=== PATIENT | female | born 1990 | race Caucasian/White ===

== ENCOUNTER 2022-03-20 10:49 | Inpatient (IN) | payer MEDICAID ==
[~2022-03-20] VITALS: Ht 157.5 cm; Wt 68.5 kg
[2022-03-20 10:50] VITALS: BP_SYST 152
--- NOTE | 2022-03-20 10:50 | NUR ---
Placed in room 1 . Placed on traffic monitor specialist, blood pressure machine and pulse oximeter. To gown for exam. Side rails up. Report given to MIKE DOMINGO.
--- NOTE | 2022-03-20 10:52 | NUR ---
ER DR. WOLF EXAMINING PT
[2022-03-20 11:51] LABS: BASOPHILS # (AUTO) 0.1 K/uL (0.0-0.2); BASOPHILS % (AUTO) 0.9 % (0.0-2.0); EOSINOPHILS # (AUTO) 0.6 K/uL (0.0-0.4); HEMOGLOBIN 7.9 g/dL (12.0-16.0); LYMPHOCYTES # (AUTO) 2.3 K/uL (1.0-5.5); LYMPHOCYTES % (AUTO) 16.3 % (20.5-51.5); MEAN CORPUSCULAR HEMOGLOBIN 29 pg (27-31); MEAN CORPUSCULAR HGB CONC 34 % (32-36); MEAN CORPUSCULAR VOLUME 84 fL (79.0-98.0); MONOCYTES # (AUTO) 0.9 K/uL (0.0-1.0); MONOCYTES % (AUTO) 6.4 % (1.7-9.3); NEUTROPHILS # (AUTO) 10.4 K/uL (1.8-7.7); NEUTROPHILS % (AUTO) 72.4 % (40.0-70.0); PLATELET COUNT (AUTO) 491 K/uL (130-430); RED BLOOD CELL COUNT(AUTO) 2.75 MIL/uL (4.2-6.2); RED CELL DISTRIBUTION WIDTH 16.3 % (9.0-15.0); WHITE BLOOD COUNT (AUTO) 14.4 K/uL (4.8-10.8)
[2022-03-20] MEDS ORDERED: LIDOCAINE 1%, 20 ML MDV 20 ML ONE (12:30)
[2022-03-20 13:30] LABS: ANION GAP 9 (5-15); CALCIUM 7.8 mg/dL (8.4-11.0); CHLORIDE 108 mmol/L (98-107); CREATININE 4.53 mg/dL (0.55-1.30); GLUCOSE 144 mg/dL (70-99); POTASSIUM 5.2 mmol/L (3.5-5.1); SODIUM SERUM 139 mmol/L (136-145); UREA NITROGEN, BLOOD 63 mg/dL (8-21)
[2022-03-20 13:32] LABS: GFR AFRICAN AMERICAN 15 mL/min (>90)
[2022-03-20 13:39] LABS: ALANINE AMINOTRANSFERASE 39 U/L (12-78); ASPARTATE AMINOTRANSFERASE 27 U/L (10-37); TOTAL BILIRUBIN 0.1 mg/dL (0.0-1.0)
--- NOTE | 2022-03-20 14:04 | NUR ---
COVID SWAB SENT TO LAB 14:02.
[2022-03-20] MEDS ORDERED: SODIUM ZIRCONIUM CYCLOSILICATE 10 GM POWD.PACK PO ONE (14:45)
[2022-03-20] MEDS ORDERED: FUROSEMIDE 40 MG/4 ML VIAL IVP ONE (14:45)
[2022-03-20] MEDS ORDERED: ONDANSETRON HCL 4 MG/2 ML VIAL IVP ONE (14:45)
[2022-03-20] MEDS ORDERED: ONDANSETRON HCL 4 MG/2 ML VIAL ONE (14:49)
--- NOTE | 2022-03-20 14:51 | NUR ---
Admit bed requested Patient will be admitted to care of . Admitted to TELE unit. Diagnosis RENAL FAILURE Inpatient (Yes or No) YES Observation (Yes or No) NO Orientation concerns or request close to nursing station (Yes or No) NO Covid Status NEGATIVE On vent or bipap NO Isolation requirements NO Needs a sitter NO From Home (Yes or if No enter name of facility) HOME Requires Dialysis (Yes or No) YES Med Rec Completed (Yes of No) YES
[2022-03-20] MEDS ORDERED: NALOXONE HCL 0.4 MG/ML AMP (NARCAN) IVP PRN (18:15)
[2022-03-20] MEDS ORDERED: HYDROcodone/ACETAMIN 5-325 MG TAB (NORCO/ VICODIN) PO PRN (18:15)
[2022-03-20 18:25] VITALS: BP_SYST 168
--- NOTE | 2022-03-20 18:45 | NUR ---
Pt. received at 1800 via gurney accompanied by er nurse. A/O x4. VS 200/123, and 168/117. Dr Rivera at bedside, assessment done. Pt. c/o pain 03/29. [place] ordered. Given. Central line left femoral, site clear. insulin right lower abdomen, BS 134 per pump. Tele placed Sinus tacky. Pt. voicing needs without difficulty. Edema +3 bilateral Report to casework specialist MIKE Calvillo.
[2022-03-20 20:00] VITALS: BP_SYST 163
[2022-03-20] MEDS ORDERED: ONDANSETRON HCL 4 MG/2 ML VIAL IVP PRN (20:00)
[2022-03-20] MEDS ORDERED: DEXTROSE 50% JECT 50 ML DISP.SYRIN IVP PRN (20:15)
[2022-03-20] MEDS ORDERED: GLUCOSE (DEXTROSE) ORAL GEL -Adults PO PRN (20:15)
[2022-03-20] MEDS ORDERED: D5W 1,000 ML IV PRN (20:15)
[2022-03-20] MEDS ORDERED: LABETALOL HCL 20 MG/4 ML CARTRIDGE IVP PRN ×2 (20:15→20:21)
[2022-03-20] MEDS: CARVEDILOL 12.5 MG TABLET (COREG) PO SCH ×2 (21:00→21:20)
[2022-03-20] MEDS ORDERED: DIPHENHYDRAMINE HCL 12.5 MG/5 ML UDC PO ONE (23:30)
[2022-03-21] VITALS: BP_SYST 146
[2022-03-21 08:00] VITALS: BP_SYST 144
[2022-03-21] MEDS ORDERED: amLODIPine BESYLATE 5 MG TABLET PO SCH (09:00)
[2022-03-21] MEDS ORDERED: D5/0.45 NS 1,000 ML IV SCH (09:15)
[2022-03-21] MEDS: CARVEDILOL 12.5 MG TABLET (COREG) PO SCH ×2 (09:19→21:09)
[2022-03-21] MEDS ORDERED: LABETALOL 100 MG/ 20ML VIAL IVP PRN (11:30)
[2022-03-21 12:00] VITALS: BP_SYST 144
[2022-03-21] MEDS ORDERED: POLYETHYLENE GLYCOL 3350, 17 GM/ POWD.PACK PO PRN (12:45)
[2022-03-21] MEDS ORDERED: DOCUSATE SODIUM 100 MG CAPSULE PO PRN (12:45)
[2022-03-21 14:03] LABS: BASOPHILS # (AUTO) 0.1 K/uL (0.0-0.2); BASOPHILS % (AUTO) 0.9 % (0.0-2.0); EOSINOPHILS # (AUTO) 0.4 K/uL (0.0-0.4); EOSINOPHILS % (AUTO) 4.2 % (0.0-4.0); LYMPHOCYTES # (AUTO) 2.5 K/uL (1.0-5.5); LYMPHOCYTES % (AUTO) 26.1 % (20.5-51.5); MEAN CORPUSCULAR HEMOGLOBIN 28 pg (27-31); MEAN CORPUSCULAR HGB CONC 34 % (32-36); MEAN CORPUSCULAR VOLUME 84 fL (79.0-98.0); MONOCYTES # (AUTO) 0.6 K/uL (0.0-1.0); MONOCYTES % (AUTO) 6.4 % (1.7-9.3); NEUTROPHILS # (AUTO) 5.9 K/uL (1.8-7.7); NEUTROPHILS % (AUTO) 62.4 % (40.0-70.0); PLATELET COUNT (AUTO) 371 K/uL (130-430); RED BLOOD CELL COUNT(AUTO) 2.28 MIL/uL (4.2-6.2); RED CELL DISTRIBUTION WIDTH 15.7 % (9.0-15.0); WHITE BLOOD COUNT (AUTO) 9.4 K/uL (4.8-10.8)
[2022-03-21 14:06] LABS: HEMOGLOBIN 6.5 g/dL (12.0-16.0)
[2022-03-21 14:07] LABS: HEMATOCRIT 19.1 % (36-48)
[2022-03-21 14:17] LABS: CALCIUM 7.7 mg/dL (8.4-11.0); CREATININE 4.41 mg/dL (0.55-1.30); PHOSPHORUS 4.8 mg/dL (2.7-4.5); POTASSIUM 4.3 mmol/L (3.5-5.1)
[2022-03-21 14:27] LABS: TOTAL IRON BIND. CAPACITY 195 ug/dL (250-450)
--- NOTE | 2022-03-21 14:28 | NUR ---
DISCHARGE PLANNING Spoke with pt at bedside, entered room. Plan for new HD, [facility]. Pt agreeable with [facility] with preference for morning HD if possible. Per pt has never had dialysis in past. Father will be driving her to dialysis center.
[2022-03-21] MEDS ORDERED: levoFLOXacin 750 MG TABLET PO ONE (14:30)
[2022-03-21] MEDS ORDERED: FUROSEMIDE 40 MG/4 ML VIAL IVP ONE (15:00)
[2022-03-21] MEDS ORDERED: EPOETIN ALFA-EPBX 4,000 UNITS/ML VIAL SUBCUT ONE (15:30)
--- NOTE | 2022-03-21 15:58 | NUR ---
Dr Thomson saw patient at the bedside today. He has reviewed available labs. He states that he will wait for blood culture results to return before placing HD access. Blood cultures were drawn this afternoon and delivered to the lab.
[2022-03-21 16:00] VITALS: BP_SYST 153
--- NOTE | 2022-03-21 16:34 | NUR ---
BT INITIATION: Consent signed per pt agreeing to administration of blood. Blood has been type and crossmatched. Blood sent from blood bank. Information on unit of blood checked against patient wristband at bedside by two nurses. All information matches. Patient or responsible republican informed of potential complications associated with blood transfusion. Informed of possible transfusion reaction symptoms. Aware of need to notify nurse at once of itching, shortness of breath, flushing, feeling of impending doom, or other symptoms not previously present. Vital signs taken within 5 minutes prior to initiation of transfusion. RN will remain with patient for first 15 minutes of transfusion at which time vital signs will be re-assessed.
--- NOTE | 2022-03-21 16:39 | NUR ---
CONSULT CARDIOLOGY CARDIAC CLEARANCE FOR SURGERY DR DONG [phone] S/W [facility] OFFICE
--- NOTE | 2022-03-21 16:49 | NUR ---
blood transfusion obtained vs, increased transfusion rate to 125ml/hr. Patient tolerating well, no signs of adverse reactions.
--- NOTE | 2022-03-21 18:00 | NUR ---
Miss Tilley has been assessed as indicated. she has continued ti deny pain. She has pool NPO until dinner time. She was awating information related to HD access placement. This is to be placed tomorrow.She will be nPO after midnight. She had IVF when NPO and this has been well tolerated. Her blood sugars have been measured by a percutaneus device that also provides continous insulin. She has been transfused with 1 unit PRBC. this has been well tolerated. she has also been provided with a dose of PROCRIT medication. She has been both pleasant and cooperative. And is resting quietly at this time
[2022-03-21] MEDS ORDERED: PANTOPRAZOLE SODIUM 40 MG/VIAL (PROTONIX) IVP ONE (19:00)
[2022-03-21 19:05] VITALS: BP_SYST 148; BP_SYST 157
--- NOTE | 2022-03-21 19:15 | NUR ---
Handoff has been given to Trinh
[2022-03-21 20:38] VITALS: BP_SYST 165
[2022-03-22 00:36] VITALS: BP_SYST 155
[2022-03-22 00:55] LABS: HEMATOCRIT 24.3 % (36-48); HEMOGLOBIN 8.3 g/dL (12.0-16.0); MEAN CORPUSCULAR HEMOGLOBIN 30 pg (27-31); MEAN CORPUSCULAR HGB CONC 34 % (32-36); MEAN CORPUSCULAR VOLUME 86 fL (79.0-98.0); RED BLOOD CELL COUNT(AUTO) 2.82 MIL/uL (4.2-6.2)
[2022-03-22 00:56] LABS: BASOPHILS % (AUTO) 0.9 % (0.0-2.0); EOSINOPHILS # (AUTO) 0.4 K/uL (0.0-0.4); LYMPHOCYTES # (AUTO) 1.7 K/uL (1.0-5.5); LYMPHOCYTES % (AUTO) 14.5 % (20.5-51.5); MONOCYTES # (AUTO) 0.6 K/uL (0.0-1.0); MONOCYTES % (AUTO) 5.3 % (1.7-9.3); NEUTROPHILS # (AUTO) 9.1 K/uL (1.8-7.7); NEUTROPHILS % (AUTO) 76.3 % (40.0-70.0); PLATELET COUNT (AUTO) 383 K/uL (130-430); RED CELL DISTRIBUTION WIDTH 15.7 % (9.0-15.0)
[2022-03-22 00:57] LABS: BASOPHILS # (AUTO) 0.1 K/uL (0.0-0.2)
--- NOTE | 2022-03-22 04:23 | NUR ---
CONSULTATION PAGED/CALLED Reason for Consultation: ABD PAIN. ACUTE DROP IN HGB Person Who was Notified: ROBBY Consulting Physician: DR.SHARMA BLAKELY FOR Copy Editor Specialty: GI Ordering Physician: MACARENA
[2022-03-22 07:44] LABS: CALCIUM 7.9 mg/dL (8.4-11.0); CREATININE 4.55 mg/dL (0.55-1.30); POTASSIUM 4.9 mmol/L (3.5-5.1)
[2022-03-22 08:00] LABS: ALBUMIN 1.8 g/dL (3.4-4.8); THYROID STIMULATING HORMONE 4.46 uIu/mL (0.36-3.74); TOTAL BILIRUBIN 0.2 mg/dL (0.0-1.0)
[2022-03-22 08:06] LABS: FOLATE (FOLIC ACID) 11.3 ng/mL (>3.0)
[2022-03-22 08:13] VITALS: BP_SYST 187
[2022-03-22] MEDS: BUMETANIDE 1 MG TABLET PO SCH ×2 (08:23→20:19)
[2022-03-22] MEDS: CARVEDILOL 12.5 MG TABLET (COREG) PO SCH ×2 (08:23→20:19)
[2022-03-22] MEDS: amLODIPine BESYLATE 5 MG TABLET PO SCH (08:23)
[2022-03-22] MEDS: PANTOPRAZOLE SODIUM 40 MG/VIAL (PROTONIX) IVP SCH (08:27)
--- NOTE | 2022-03-22 08:44 | NUR ---
DR. DONG IN THE UNIT. MADE HIM AWARE OF LATEST TROPONIN 274, DENIES ANY CHEST PAIN. MADE MD OF HER BP WELL 187/112 AND GAVE AM BP MEDS WITH A LITTLE BIT OF WATER. STATED THAT IS OKAY. PT PENDING SURGERY FOR PERMACATH PLACEMENT.
[2022-03-22 08:46] LABS: BASOPHILS # (AUTO) 0.1 K/uL (0.0-0.2); BASOPHILS % (AUTO) 0.8 % (0.0-2.0); EOSINOPHILS # (AUTO) 0.4 K/uL (0.0-0.4); EOSINOPHILS % (AUTO) 3.1 % (0.0-4.0); HEMATOCRIT 23.6 % (36-48); HEMOGLOBIN 8.1 g/dL (12.0-16.0); LYMPHOCYTES % (AUTO) 16.8 % (20.5-51.5); MEAN CORPUSCULAR HEMOGLOBIN 30 pg (27-31); MEAN CORPUSCULAR HGB CONC 35 % (32-36); MEAN CORPUSCULAR VOLUME 85 fL (79.0-98.0); MONOCYTES # (AUTO) 0.7 K/uL (0.0-1.0); MONOCYTES % (AUTO) 6.4 % (1.7-9.3); NEUTROPHILS # (AUTO) 8.5 K/uL (1.8-7.7); NEUTROPHILS % (AUTO) 72.9 % (40.0-70.0); PLATELET COUNT (AUTO) 372 K/uL (130-430); RED BLOOD CELL COUNT(AUTO) 2.76 MIL/uL (4.2-6.2); RED CELL DISTRIBUTION WIDTH 15.8 % (9.0-15.0); WHITE BLOOD COUNT (AUTO) 11.7 K/uL (4.8-10.8)
--- NOTE | 2022-03-22 09:01 | NUR ---
CONSULTATION PAGED/CALLED Reason for Consultation: [] ELEVATED TROP; CARDIAC CLEARANCE Person Who was Notified: [] DR DONG Consulting Physician: [] DR DONG Sergeant [employer] Specialty: [] CARDIO Ordering Physician: [] DR BOWEN
--- NOTE | 2022-03-22 09:43 | NUR ---
GEN MARIUM THOMAS WAS CALLED, RE: TO ASK WHETHER SURGERY IS ON TODAY OR NOT. SPOKE TO HAI.
[2022-03-22 10:20] LABS: BILIRUBIN,URINE NEGATIVE (NEGATIVE); BLOOD, URINE 2+ (NEGATIVE); CLARITY/URINE CLEAR (CLEAR); COLOR,URINE YELLOW (YELLOW); GLUCOSE,URINE TRACE (NEGATIVE); KETONES,URINE NEGATIVE (NEGATIVE); LEUKOCYTE ESTERASE ,URINE NEGATIVE (NEGATIVE); NITRITE, URINE NEGATIVE (NEGATIVE); PROTEIN URINE 2+ (NEGATIVE); UROBILINOGEN,URINE 0.2 (0.2-1.0)
[2022-03-22 10:37] LABS: BACTERIA,URINE FEW /HPF (None Seen); MUCUS,URINE 1+ /LPF (None Seen)
--- NOTE | 2022-03-22 10:38 | NUR ---
PUT ANOTHER F/U CALL TO DR THOMAS, RE: SURGERY TODAY OR NO SURGERY TODAY. SPOKE TO AMBROSIO.
--- NOTE | 2022-03-22 11:26 | NUR ---
HODA AND RECEIVED CALL BACK FROM DR. THOMAS. PER , PT'S SURGERY NOW MOVED BACK HE STATED HE WILL BE HERE AROUND 530-6PM TONIGHT AND TO KEEP PT NPO. PT'S BS 96. PT STATES SHE FEELS LIKE ITS DROPPING AND MAY GO INTO HYPOGLYCEMIC EPISODE. D5W STARTED PER PORFIRIO. Addendum: 03/22/22 at 1129 by [facility] color room attendant PT UPDATED AND VERBALIZED UNDERSTANDING.
[2022-03-22] MEDS ORDERED: MINERAL OIL 30 ML UDC PO ONE (11:30)
[2022-03-22] MEDS: FERROUS SULFATE 325 MG TABLET.DR PO SCH (11:45)
[2022-03-22] MEDS ORDERED: POLYETHYLENE GLYCOL 3350, 17 GM/ POWD.PACK PO ONE (12:00)
[2022-03-22 12:24] VITALS: BP_SYST 161
--- NOTE | 2022-03-22 15:03 | NUR ---
COLLECTED AND SENT TO LAB MRSA NARES AND TB GOLD BLOOD TUBES.
[2022-03-22 16:16] VITALS: BP_SYST 149
[2022-03-22] MEDS ORDERED: PROPOFOL 200MG/ 20ML VIAL (DIPRIVAN) IV ONE (16:26)
[2022-03-22] MEDS ORDERED: METOCLOPRAMIDE HCL 10 MG/2 ML VIAL ONE (16:26)
[2022-03-22] MEDS ORDERED: MIDAZOLAM HCL 2 MG/2 ML VIAL (VERSED) ONE (16:26)
[2022-03-22] MEDS ORDERED: NS IRRIG SOLN 1000 ML IR ONE (16:26)
[2022-03-22] MEDS ORDERED: fentaNYL CITRATE/PF 100 MCG/2 ML AMP ONE (16:26)
[2022-03-22] MEDS ORDERED: SEVOFLURANE 15 MIN GAS INH ONE (16:26)
[2022-03-22] MEDS ORDERED: ONDANSETRON HCL 4 MG/2 ML VIAL ONE (16:26)
[2022-03-22] MEDS ORDERED: LIDOCAINE 1% 10 MG/ML, 20 ML MDV ONE (16:26)
[2022-03-22] MEDS ORDERED: CEFAZOLIN 2 GM IVPB PREMIX 50 ML IV ONE (16:26)
[2022-03-22] MEDS ORDERED: NS 1000 ML IV.SOLN IV ONE (16:26)
[2022-03-22] MEDS ORDERED: HYDROmorphone 2 MG/ML VIAL IVP PRN (17:15)
[2022-03-22] MEDS ORDERED: MORPHINE 4 MG INJ. 4 MG/ML VIAL IVP PRN (17:15)
--- NOTE | 2022-03-22 17:27 | NUR ---
S/W DR. GRAHAM, INFORMED MD PT'S PERMACATH TO BE DONE AROUND 6PM TODAY. PER MD HE WILL ORDER 1ST HEMODIALYSIS FOR TOMORROW DURING THE DAY.
[2022-03-22] MEDS ORDERED: NACL 0.9% 1,000 ML IV SCH (17:30)
[2022-03-22] MEDS ORDERED: ONDANSETRON HCL 4 MG/2 ML VIAL IVP PRN (17:30)
[2022-03-22 18:31] VITALS: BP_SYST 151
--- NOTE | 2022-03-22 18:32 | NUR ---
CLOSING NOTE: PT BACK FROM SURGERY. PT IS INS STABLE CONDITION. VITAL SIGNS TAKEN AND STABLE. NEWLY PLACED PERMACATH LINE SITE LOOKS C/D/I, NO DRAINAGE/BLEEDING NOTED. PT PROVIDED WITH HER DINNER. PT'S BS AT THIS TIME 93. ALL CARE NEEDS MET AT THIS TIME. WILL ENDORSE CARE TO PM NURSE. Addendum: 03/22/22 at 1845 by [employer] independent driver ASKED PT IF SHE WANTS TO TAKE THE MINERAL OIL RIGHT NOW. PT REQUESTING IF SHE CAN TAKE IT TOMORROW. PT STATES SHE FEELS TIRED AFTER PROCEDURE. WILL ENDORSE
--- NOTE | 2022-03-22 19:39 | NUR ---
PAGED PAGED DOCTOR
[2022-03-22] MEDS ORDERED: DIPHENHYDRAMINE INJ 50 MG/ML VIAL IVP ONE (20:00)
[2022-03-22] MEDS ORDERED: DIPHENHYDRAMINE INJ 50 MG/ML VIAL ONE (20:16)
[2022-03-22 20:25] VITALS: BP_SYST 144
--- NOTE | 2022-03-22 20:30 | NUR ---
pt reports tongue swelling and sob after consuming dinner. Pt reports she ate mushroom and had an allergic reaction. RN assessed at bedside. 2L oxygen applied. Vitals stable. MD notified. An order for prn Benadryl given and administered. pt reports relief. Will continue to monitor and resume care.
[2022-03-23 03:07] LABS: HEPATITIS A AB, IgM Negative (Negative); HEPATITIS B CORE AB, IgM Negative (Negative); HEPATITIS B SURFACE AG Negative (Negative)
[2022-03-23 08:00] VITALS: BP_SYST 154
--- NOTE | 2022-03-23 08:00 | NUR ---
OPENING NOTES: PATIENT RESTING IN BED. BREATHING EVEN AND NON LABORED TO RA . FALL AND SAFETY MEASURES REINFORCED. CALL LIGHT WITHIN REACH.
[2022-03-23] MEDS: PANTOPRAZOLE SODIUM 40 MG/VIAL (PROTONIX) IVP SCH (08:50)
[2022-03-23] MEDS: levoFLOXacin 250 MG TABLET PO SCH (08:51)
[2022-03-23] MEDS: CARVEDILOL 12.5 MG TABLET (COREG) PO SCH ×2 (09:00→21:52)
[2022-03-23] MEDS: POLYETHYLENE GLYCOL 3350, 17 GM/ POWD.PACK PO SCH (09:00)
[2022-03-23] MEDS: BUMETANIDE 1 MG TABLET PO SCH ×2 (09:00→21:53)
[2022-03-23] MEDS: amLODIPine BESYLATE 5 MG TABLET PO SCH (09:00)
[2022-03-23] MEDS ORDERED: DIPHENHYDRAMINE INJ 50 MG/ML VIAL IVP ONE ×2 (10:30→23:45)
[2022-03-23] MEDS: FERROUS SULFATE 325 MG TABLET.DR PO SCH (11:32)
--- NOTE | 2022-03-23 12:29 | NUR ---
RN notes: Accucheck done 283. Patient has insulin pump. No s/s of acute distress noted. Call light within reach.
--- NOTE | 2022-03-23 12:48 | NUR ---
[facility]Patient has a chair time of T-T-S at 2:30 PM. Packet for dailysis to be sent to [facility] [place]. Patient will need results of TB Gold before patient can receive out pt HD Addendum: 03/23/22 at 1634 by Deandra Urrutia DP DCP faxed pt referral to [facility] P#[phone] F#[phone] pending TB gold.
[2022-03-23 12:53] VITALS: BP_SYST 148
[2022-03-23] MEDS: EPOETIN ALFA 4,000 UNITS/ML VIAL SUBCUT SCH (16:48)
[2022-03-23 17:00] VITALS: BP_SYST 139
[2022-03-23] MEDS ORDERED: HEPARIN SODIUM,PORCINE 5,000 UNITS/ML VIAL MC ONE (17:00)
--- NOTE | 2022-03-23 17:00 | NUR ---
HEMODIALYSIS DONE: HEMODIALYSIS DONE AT BEDSIDE. NO S/S OF ACUTE DISTRESS NOTED. STABLE VS. HD OUT 1500 ML.
--- NOTE | 2022-03-23 17:23 | NUR ---
Dietitian Recommendations * Continue CCHO, Renal diet * RD to provide Renal/HD MNT prior to D/C LP, MS, RD Please refer to Nutrition Assessment for details. Addendum: 03/23/22 at [address] Amended: Links added.
--- NOTE | 2022-03-23 18:45 | NUR ---
CLOSING NOTES: PATIENT RESTING IN BED. NO S/S OF ACUTE DISTRESS. FALL AND SAFETY MEASURES PROVIDED. CALL LIGHT WITHIN REACH. NEEDS MET THROUGHOUT SHIFT.
[2022-03-23 20:30] VITALS: BP_SYST 164
--- NOTE | 2022-03-23 23:29 | NUR ---
Spoke with Dr. Frye about patient's report of itchiness and BP 164/95. Received order for one time dose of Benadryl 25mg IVP. Per Dr. Frye, patient will have dialysis in the morning.
[2022-03-24 00:20] VITALS: BP_SYST 166
--- NOTE | 2022-03-24 03:00 | NUR ---
Rounds Patient sleeping in bed, unlabored breathing on room air. Given Benadryl earlier for report of itchiness. Call light in reach, bed low and locked, fall and safety precautions in place.
[2022-03-24 04:36] VITALS: BP_SYST 166
--- NOTE | 2022-03-24 07:03 | NUR ---
Closing Patient resting in bed, unlabored breathing on room air. No complaint of pain. Dialysis scheduled for this morning. Blood sugar 116. Permacath and left femoral central line in place. Patient stated she may need help arranging a ride when she gets discharged. Call light in reach, bed low and locked.
--- NOTE | 2022-03-24 08:00 | NUR ---
OPENING NOTES: PATIENT EATING BREAKFAST. BREATHING EVEN AND NON LABORED TO RA . FALL AND SAFETY MEASURES REINFORCED. CALL LIGHT WITHIN REACH.
[2022-03-24 08:04] VITALS: BP_SYST 158
[2022-03-24 08:06] LABS: HEPATITIS A AB, IgM Negative (Negative); HEPATITIS B CORE AB, IgM Negative (Negative); HEPATITIS B SURFACE AG Negative (Negative)
[2022-03-24] MEDS: POLYETHYLENE GLYCOL 3350, 17 GM/ POWD.PACK PO SCH (09:00)
[2022-03-24] MEDS: amLODIPine BESYLATE 5 MG TABLET PO SCH (09:00)
[2022-03-24] MEDS: BUMETANIDE 1 MG TABLET PO SCH ×2 (09:00→20:09)
[2022-03-24] MEDS: CARVEDILOL 12.5 MG TABLET (COREG) PO SCH ×2 (09:00→20:10)
[2022-03-24] MEDS: PANTOPRAZOLE SODIUM 40 MG/VIAL (PROTONIX) IVP SCH (09:39)
[2022-03-24 12:00] VITALS: BP_SYST 142
[2022-03-24] MEDS: FERROUS SULFATE 325 MG TABLET.DR PO SCH (12:08)
[2022-03-24] MEDS ORDERED: HEPARIN SODIUM, PORCINE 10,000 UNITS/ 10 ML VIAL MC ONE ×3 (14:45→16:00)
--- NOTE | 2022-03-24 15:30 | NUR ---
Hemodialysis done: Hemodialysis done. No s/s of acute distress noted. Stable VS. HD out 2 liters.
--- NOTE | 2022-03-24 15:53 | NUR ---
HIGH ALERT NOTE: Called Dr. Frye back at [phone] identified within the medical roster to verify physician authenticity for Heparin 5000 units x 2 doses to be given by the HD nurse to each port during hemodialysis.
[2022-03-24 16:00] VITALS: BP_SYST 111
[2022-03-24] MEDS ORDERED: HEPARIN SODIUM,PORCINE 5,000 UNITS/ML VIAL MC ONE (16:00)
--- NOTE | 2022-03-24 16:00 | NUR ---
SPOKE TO CM (Rebecca) regarding discharge: Spoke Sherrell, the CM regarding the discharge and she stated that patient could not be discharged without the tb gold test for dialysis requirement.
--- NOTE | 2022-03-24 18:33 | NUR ---
CLOSING NOTES: PATIENT RESTING IN BED. NO S/S OF ACUTE DISTRESS. DENIES ANY DISCOMFORT AT THIS TIME. FALL AND SAFETY MEASURES PROVIDED. CALL LIGHT WITHIN REACH. NEEDS MET THROUGHOUT SHIFT.
--- NOTE | 2022-03-24 19:22 | NUR ---
OPENING NOTE REPORT RECEIVED FROM DAYSHIFT NURSE. PATIENT RECEIVED LYING IN BED, AWAKE, ALERT, NO S/S OF ACUTE DISTRESS. BREATHING EVEN AND UNLABORED. HOB RAISED. NIKOLAI PAIN AND SOB. IV SITE PATENT, NO SIGNS OF INFILTRATION OR INFECTION NOTED. SKIN WARM AND DRY TO TOUCH, NO S/S OF HYPOGLYCEMIA NOTED. CALL LIGHT WITH PATIENT, DEMONSTRATED PROPER USE. BED IS LOCKED AND AT LOWEST POSITION. WILL CONTINUE TO MONITOR.
[2022-03-24 20:00] VITALS: BP_SYST 147
[2022-03-25] VITALS: BP_SYST 144
[2022-03-25] MEDS ORDERED: DIPHENHYDRAMINE HCL 25 MG CAPSULE PO ONE (04:45)
--- NOTE | 2022-03-25 06:34 | NUR ---
CLOSING NOTE PATIENT IN BED, NO S/S OF ACUTE DISTRESS. BREATHING EVEN AND UNLABORED. IV SITE PATENT, NO SIGNS OF INFILTRATION OR INFECTION NOTED. SKIN WARM AND DRY TO TOUCH. NO S/S OF HYPOGLYCEMIA NOTED. ALL NEEDS MET THROUGHOUT SHIFT. FALL, SAFETY PRECAUTIONS MAINTAINED THROUGHOUT SHIFT. WILL CONTINUE TO MONITOR UNTIL PATIENT IS ENDORSED TO ONCOMING DAYSHIFT NURSE.
[2022-03-25 07:40] VITALS: BP_SYST 161
--- NOTE | 2022-03-25 07:40 | NUR ---
INITIAL ROUNDS Received pt AAOx4, no s/s resp distress, c/o headache -01/27, will check pt's pain medications. Noted Insulin pump to pt's right abd. Plan of care for the day reviewed with pt-pt verbalized her understanding. Still waiting on results of TB Gold. Pain management, disease process, skin and safety discussed-teach back done. Call light within reach.
[2022-03-25] MEDS: POLYETHYLENE GLYCOL 3350, 17 GM/ POWD.PACK PO SCH (09:00)
[2022-03-25] MEDS: PANTOPRAZOLE SODIUM 40 MG/VIAL (PROTONIX) IVP SCH (09:11)
[2022-03-25] MEDS: levoFLOXacin 250 MG TABLET PO SCH (09:12)
[2022-03-25] MEDS: amLODIPine BESYLATE 5 MG TABLET PO SCH (09:13)
[2022-03-25] MEDS: CARVEDILOL 12.5 MG TABLET (COREG) PO SCH ×2 (09:14→20:45)
[2022-03-25] MEDS: BUMETANIDE 1 MG TABLET PO SCH (09:15)
--- NOTE | 2022-03-25 09:15 | NUR ---
PAIN/NAUSEA Pt given cold pack earlier for her headache which she now states is resolved, c/o pain now 0/10. Now c/o nausea-will give Zofran as ordered. Light turned down low and curtain pulled to promote rest. Call light within reach.
[2022-03-25] MEDS: PANTOPRAZOLE SODIUM 40 MG TAB PO SCH (09:30)
--- NOTE | 2022-03-25 10:10 | NUR ---
TB GOLD RESULTS FOLLOWED UP WITH LAB. NO RESULT AVAILABLE OF REPORT
[2022-03-25] MEDS: FERROUS SULFATE 325 MG TABLET.DR PO SCH (12:23)
[2022-03-25 14:20] LABS: BASOPHILS # (AUTO) 0.1 K/uL (0.0-0.2); BASOPHILS % (AUTO) 0.8 % (0.0-2.0); EOSINOPHILS # (AUTO) 0.3 K/uL (0.0-0.4); EOSINOPHILS % (AUTO) 3.7 % (0.0-4.0); HEMATOCRIT 24.7 % (36-48); HEMOGLOBIN 8.6 g/dL (12.0-16.0); LYMPHOCYTES # (AUTO) 1.5 K/uL (1.0-5.5); LYMPHOCYTES % (AUTO) 16.8 % (20.5-51.5); MEAN CORPUSCULAR HEMOGLOBIN 30 pg (27-31); MEAN CORPUSCULAR HGB CONC 35 % (32-36); MEAN CORPUSCULAR VOLUME 85 fL (79.0-98.0); MONOCYTES # (AUTO) 0.6 K/uL (0.0-1.0); NEUTROPHILS # (AUTO) 6.6 K/uL (1.8-7.7); NEUTROPHILS % (AUTO) 71.7 % (40.0-70.0); PLATELET COUNT (AUTO) 288 K/uL (130-430); RED BLOOD CELL COUNT(AUTO) 2.89 MIL/uL (4.2-6.2); RED CELL DISTRIBUTION WIDTH 15.6 % (9.0-15.0); WHITE BLOOD COUNT (AUTO) 9.2 K/uL (4.8-10.8)
[2022-03-25 14:50] LABS: CREATININE 4.14 mg/dL (0.55-1.30); PHOSPHORUS 4.7 mg/dL (2.7-4.5); POTASSIUM 3.7 mmol/L (3.5-5.1)
[2022-03-25 16:05] VITALS: BP_SYST 115
--- NOTE | 2022-03-25 17:20 | NUR ---
FINGERSTICK Pt's fingerstick 215 mg/dl, pt has Insulin pump that distributes her Insulin.
[2022-03-25] MEDS: EPOETIN ALFA 4,000 UNITS/ML VIAL SUBCUT SCH (17:46)
--- NOTE | 2022-03-25 18:39 | NUR ---
CLOSING NOTE Pt resting quietly in bed with no s/s resp distress, no c/o pain or discomfort. Could not find an IV site to replace the femoral central line-both Charge nurse and Resource nurse agree to keep current access-will inform MD. Needs met, call light within reach.
--- NOTE | 2022-03-25 19:00 | NUR ---
opening received pt in bed alert, awake and and stable at this time. no c/o pain noted. vitals takena dn within normal limits resp even while on RA. PT has permacath to right chest dressing clean and intact. skin warm to touch. pt has central line to left femur. no swelling or pain to site. call light in reach bed to lowest position.
[2022-03-26 00:04] VITALS: BP_SYST 144
[2022-03-26 00:11] VITALS: BP_SYST 129
[2022-03-26] MEDS ORDERED: DIPHENHYDRAMINE INJ 50 MG/ML VIAL IVP ONE (06:30)
[2022-03-26 07:55] VITALS: BP_SYST 143
--- NOTE | 2022-03-26 07:55 | NUR ---
INITIAL ROUNDS Received pt AAOx4, no s/s resp distress, no c/o pain or discomfort. Noted Insulin pump to pt's right abd. Plan of care for the day reviewed with pt-pt verbalized her understanding. Still waiting on results of TB Gold. Pain management, disease process, skin and safety discussed-teach back done. Call light within reach.
[2022-03-26] MEDS: POLYETHYLENE GLYCOL 3350, 17 GM/ POWD.PACK PO SCH (09:00)
[2022-03-26] MEDS: CARVEDILOL 12.5 MG TABLET (COREG) PO SCH (09:00)
[2022-03-26] MEDS: amLODIPine BESYLATE 5 MG TABLET PO SCH (09:00)
[2022-03-26] MEDS ORDERED: BUMETANIDE 1 MG TABLET PO SCH (09:00)
[2022-03-26] MEDS: PANTOPRAZOLE SODIUM 40 MG TAB PO SCH (09:23)
[2022-03-26] MEDS: FERROUS SULFATE 325 MG TABLET.DR PO SCH (12:29)
--- NOTE | 2022-03-26 14:00 | NUR ---
CM: faxed Hep Panels and TB results to [facility] dialysis ctr fax # [phone] and s/w [place], exchange tel # [phone] . stated the office is closed on Sunday. CM will call the office tomorrow during normal business hr to confirm the chair time.-- MIKE Fletcher made aware.
[2022-03-26 15:14] VITALS: BP_SYST 154
[2022-03-26] MEDS ORDERED: AMLO5TAB4 PO (15:19)
[2022-03-26] MEDS ORDERED: CARV25TA55 PO (15:19)
--- NOTE | 2022-03-26 16:45 | NUR ---
PATIENT DISCHARGED Patient given medication reconciliation form and D/C instructions. Exit Care on Chest Pain, Dialysis, Norvasc and Coreg explained and provided. Patient verbalized her understanding. MD discussed with patient the results and treatment provided. Ambulatory with steady gait for discharge to home. Patient in stable condition, ID band removed. Femoral central line catheter removed, intact and dressing applied, no active bleeding. Rx of Norvasc and Coreg given. Patient educated on pain management. All belongings sent with patient. Patient left floor via wheelchair to private vehicle in no distress.
--- NOTE | 2022-03-27 08:17 | NUR ---
CM: called [facility] # [phone] , s/w Le[place], confirmed received the Hep panels and TB tests faxing yesterday. She stated she will be calling the pt to confirm HD chair time. Also notified the patient, Valentine # [phone] to call the ctr as well.
--- NOTE | 2022-03-27 08:23 | NUR ---
Dispo code 01
== END 2022-03-26 16:45 | disposition home or self-care (01) | DRG 425 ==
LOC: SED 10:49 → STU 15:36 → SMU 03-25 16:10
PROVIDERS: ADMIT Internal Medicine; ATTEND Internal Medicine
PROC: 30233N1 Transfusion of Nonautologous Red Blood Cells into Peripheral Vein, Percutaneous Approach (ICD-10-PCS; 2022-03-21)
PROC: B518ZZA Fluoroscopy of Superior Vena Cava, Guidance (ICD-10-PCS; 2022-03-22)
PROC: B548ZZA Ultrasonography of Superior Vena Cava, Guidance (ICD-10-PCS; 2022-03-22)
PROC: 0JH63XZ Insertion of Tunneled Vascular Access Device into Chest Subcutaneous Tissue and Fascia, Percutaneous Approach (ICD-10-PCS; 2022-03-22)
PROC: 02H633Z Insertion of Infusion Device into Right Atrium, Percutaneous Approach (ICD-10-PCS; principal; 2022-03-22 17:35)
PROC: 5A1D70Z Performance of Urinary Filtration, Intermittent, Less than 6 Hours Per Day (ICD-10-PCS; 2022-03-23)
PROC: 5A1D70Z Performance of Urinary Filtration, Intermittent, Less than 6 Hours Per Day (ICD-10-PCS; 2022-03-24)
PROC: 5A1D70Z Performance of Urinary Filtration, Intermittent, Less than 6 Hours Per Day (ICD-10-PCS; 2022-03-25)
DX: E87.5 Hyperkalemia (principal); I12.0 Hypertensive chronic kidney disease with stage 5 chronic kidney disease or end stage renal disease; I24.8 Other forms of acute ischemic heart disease; N18.6 End stage renal disease; D63.1 Anemia in chronic kidney disease; E10.22 Type 1 diabetes mellitus with diabetic chronic kidney disease; D64.9 Anemia, unspecified; Z20.822 Contact with and (suspected) exposure to COVID-19; K59.00 Constipation, unspecified; D72.829 Elevated white blood cell count, unspecified; Z96.41 Presence of insulin pump (external) (internal); K80.20 Calculus of gallbladder without cholecystitis without obstruction; Z88.8 Allergy status to other drugs, medicaments and biological substances; Z99.2 Dependence on renal dialysis; Z98.891 History of uterine scar from previous surgery; Z79.899 Other long term (current) drug therapy; Z79.4 Long term (current) use of insulin
CPT/HCPCS: 36415; 36430; 71045; 76000; 76376; 80048; 80053; 80061; 80074; 81000; 82150; 82607; 82746; 82962; 83540; 83550; 83690; 83735; 83880; 84100; 84311; 84443; 84484; 84702; 84703; 85025; 85610-TC; 85730-TC; 86480; 86886; 86900; 86901; 86920; 87040; 87081; 87086; 90935; 90937; 93005; 93306; 93971; 96374; 96375; 99285; C1750; C9113; G0378; J0690; J0885; J1170; J1200; J1644; J1940; J2001; J2405; J2704; J2765; J3010; J3465; J7030; P9021; Q0163; Q5106